=== PATIENT | male | born 1985 | race Asian ===

== ENCOUNTER 2021-10-12 10:51 | Emergency (ER) | payer OTHER ==
[~2021-10-12] VITALS: Ht 180.3 cm; Wt 109.8 kg
[~2021-10-12 10:51] MED LIST: ADIPEX PO; HYDR25TA60 PO
[2021-10-12 10:56] VITALS: BP 137/81; TEMP 97.2
[2021-10-12] MEDS ORDERED: HYDR25TA60 PO (11:48)
== END 2021-10-12 11:46 | disposition home or self-care (01) ==
LOC: ED 10:51
DX: I10 Essential (primary) hypertension (principal)
CPT/HCPCS: 99282